=== PATIENT | female | born 1970 | race Two or more races ===

== ENCOUNTER 2023-01-14 05:35 | Day surgery (SDC) | payer OTHER ==
[~2023-01-14] VITALS: Ht 170.2 cm; Wt 89.8 kg
[~2023-01-14 05:35] MED LIST: ATIVAN2 MG/1 ML PO; BUPROPION XL300 MG PO; PEPCID40 MG PO; QUESTRAN PACKET4 GM PO; TRAZODONE HCL100 MG PO; TRAZODONE PO
[2023-01-14] MEDS ORDERED: PERCOCET 5-3251 EACH PO (10:05)
[2023-01-14] MEDS ORDERED: KETO10TA2 PO (10:05)
[2023-01-14] MEDS ORDERED: NEURONTIN300 MG PO (10:06)
[2023-01-14] MEDS ORDERED: DERMOPLAST PAIN78 GM TOP (10:06)
== END 2023-01-14 13:40 | disposition home or self-care (01) ==
LOC: CIR.AMB 05:35
PROVIDERS: ATTEND Surgery
DX: K60.1 Chronic anal fissure (principal); K62.4 Stenosis of anus and rectum; N81.6 Rectocele; K59.4 Anal spasm; Z20.822 Contact with and (suspected) exposure to COVID-19; Z88.6 Allergy status to analgesic agent

== ENCOUNTER 2023-09-21 11:15 | Inpatient (IN) | payer OTHER ==
[~2023-09-21 11:15] MED LIST changes: +DERMOPLAST PAIN78 GM TOP; +KETO10TA2 PO; +NEURONTIN300 MG PO; +PERCOCET 5-3251 EACH PO
[2023-09-22] MEDS ORDERED: PEPCID 40 MG (09:00)
[2023-09-22] MEDS ORDERED: LIALDA1.2 GM PO (09:01)
[2023-09-22] MEDS ORDERED: SUCRALFATE (09:02)
[2023-09-22] MEDS ORDERED: CHOLESTYRAMINE (09:02)
[2023-09-22] MEDS ORDERED: WELLBUTRIN XL300 MG PO (09:02)
[2023-09-22] MEDS ORDERED: RESTORIL30 MG (09:03)
[2023-09-28 13:09] LABS: HEMATOCRIT 37.6 % (36.0-45.00); HEMOGLOBIN 12.8 g/dL (12.0-15.00); MEAN CELL VOLUME 91.7 fL (80.00-100.00); MEAN CORPUSCULAR HEMOGLOBIN 31.3 pg (27.00-32.0); MEAN CORPUSCULAR HGB CONC 34.1 g/dl (32.0-36.0); PLATELET COUNT 309 K/uL (150-450); RED CELL DISTRIBUTION WIDTH 12.8 % (11.5-14.5)
[2023-09-29 06:59] LABS: HEMATOCRIT 34.4 % (36.0-45.00); HEMOGLOBIN 11.6 g/dL (12.0-15.00); MEAN CORPUSCULAR HEMOGLOBIN 30.9 pg (27.00-32.0); MEAN CORPUSCULAR HGB CONC 33.6 g/dl (32.0-36.0); PLATELET COUNT 284 K/uL (150-450); RED BLOOD COUNT 3.74 M/uL (4.00-6.00); RED CELL DISTRIBUTION WIDTH 12.9 % (11.5-14.5)
[2023-09-29 07:00] LABS: CALCIUM 8.4 mg/dL (8.5-10.1); CREATININE SERUM 0.64 mg/dL (0.55-1.02); GFR 96.7; MAGNESIUM 2.1 mg/dL (1.8-2.4); PHOSPHOROUS 3.3 mg/dL (2.5-4.9); POTASSIUM 3.76 mEq/L (3.5-5.1)
[2023-09-29] MEDS ORDERED: PERCOCET 5-3251 EACH PO (08:13)
[2023-09-29] MEDS ORDERED: KETO10TA2 PO (08:13)
[2023-09-29] MEDS ORDERED: NEURONTIN300 MG PO (08:13)
== END 2023-09-29 10:57 | disposition home or self-care (01) | DRG 748 ==
LOC: O/R 09-28 06:15 → SURG 09-28 07:00 → SURH 09-28 10:32 → SURG 09-28 11:15 → SURH 09-29 10:57
PROVIDERS: ADMIT Surgery; ATTEND Surgery
PROC: 3E0T3BZ Introduction of Anesthetic Agent into Peripheral Nerves and Plexi, Percutaneous Approach (ICD-10-PCS; 2023-09-28)
PROC: 0JQC0ZZ Repair Pelvic Region Subcutaneous Tissue and Fascia, Open Approach (ICD-10-PCS; principal; 2023-09-28 07:00)
DX: N81.6 Rectocele (principal); Z20.822 Contact with and (suspected) exposure to COVID-19